=== PATIENT | male | born 1930 | race Caucasian/White ===

== ENCOUNTER 2017-02-19 15:05 | Inpatient (IN) | payer MEDICARE, OTHER ==
[2017-02-19 15:47] LABS: ADD MAN DIFF? NO
[2017-02-19 15:49] LABS: BASOPHILS % 0.3 % (0.0-2.0); EOSINOPHILS % 0.2 % (0.0-7.0); HEMATOCRIT 41.3 % (42.0-52.0); HEMOGLOBIN 14.2 g/dl (14.0-18.0); LYMPHOCYTES # 1.1 10^3/ul (0.8-2.9); LYMPHOCYTES % 11.2 % (15.0-51.0); MEAN CORPUSCULAR HEMOGLOBIN 27.5 pg (29.0-33.0); MEAN CORPUSCULAR HGB CONC 34.4 g/dl (32.0-37.0); MEAN PLATELET VOLUME 10.3 fl (7.4-10.4); MONOCYTE # 0.5 10^3/ul (0.3-0.9); MONOCYTES % 5.4 % (0.0-11.0); NEUTROPHIL # 8.2 10^3/ul (1.6-7.5); NEUTROPHILS % 82.6 % (39.0-77.0); PLATELET COUNT 247 10^3/UL (140-415); RED BLOOD COUNT 5.16 10^6/ul (4.70-6.10); RED CELL DISTRIBUTION WIDTH 14.2 % (11.5-14.5)
[2017-02-19 15:49] LABS: WHITE BLOOD COUNT 9.9 10^3/ul (4.8-10.8)
[2017-02-19 16:07] LABS: ALANINE AMINOTRANSFERASE 29 IU/L (13-69); ALBUMIN 4.5 g/dl (3.3-4.9); ALBUMIN/GLOBULIN RATIO 1.36; ALKALINE PHOSPHATASE 135 IU/L (42-121); ANION GAP 17 (8-16); ASPARTATE AMINO TRANSFERASE 23 IU/L (15-46); BILIRUBIN,INDIRECT 1.5 mg/dl (0-1.1); BILIRUBIN,TOTAL 1.5 mg/dl (0.2-1.3); BLOOD UREA NITROGEN 14 mg/dl (7-20); CARBON DIOXIDE 33 mmol/L (21-31); CHLORIDE 95 mmol/L (97-110); CREATININE 0.79 mg/dl (0.61-1.24); GLUCOSE 283 mg/dl (70-220); POTASSIUM 3.1 mmol/L (3.5-5.1); SODIUM 142 mmol/L (135-144); TOTAL PROTEIN 7.8 g/dl (6.1-8.1)
[2017-02-19 16:18] LABS: B-TYPE NATRIURETIC PEPTIDE 1280 PG/ML (0-450)
[2017-02-19 16:27] LABS: TROPONIN-I < 0.012 ng/ml (0.00-0.12)
[2017-02-19] MEDS: ONDANSETRON 4 MG INJ IV (16:53)
[2017-02-19] MEDS: hydrALAzine 20 MG INJ IV (16:56)
[2017-02-19] MEDS ORDERED: ONDANSETRON 4 MG INJ IV (19:00)
[2017-02-19] MEDS ORDERED: NACL 0.9% 3 ML SYG IV (19:00)
[2017-02-19] MEDS ORDERED: BISACODYL 10 MG SUPP PR (19:00)
[2017-02-19] MEDS ORDERED: ALBUTEROL/IPRATROPIUM (NEB) 3 ML AMP HHN (19:00)
[2017-02-19] MEDS ORDERED: morphine 2 MG INJ IV (19:00)
[2017-02-19] MEDS ORDERED: ACETAMINOPHEN 325 MG TAB PO ×3 (19:00)
[2017-02-19] MEDS ORDERED: NITROGLYCERIN (SL) 0.4 MG TAB SL (19:00)
[2017-02-19] MEDS ORDERED: NA PHOSPHATE/BIPHOS 133 ML ENEMA PR (19:00)
[2017-02-19] MEDS ORDERED: DOCUSATE SODIUM 100 MG CAP PO (19:00)
[2017-02-19] MEDS ORDERED: HYDROCODONE/APAP (5/325) TAB PO (19:00)
[2017-02-19] MEDS ORDERED: MAGNESIUM HYDROXIDE 30ML CUP PO (19:00)
[2017-02-19] MEDS: SOD CHLORIDE 0.9% 100 ML (19:25)
[2017-02-19] MEDS: IOHEXOL 300MG/ML 150 ML BTL (19:25)
[2017-02-19 19:41] LABS: FREE T4 (FREE THYROXINE) 1.21 ng/dl (0.85-1.93)
[2017-02-19] MEDS: POTASSIUM CHLORIDE 50 ML IVPB ×2 (20:00→21:00)
[2017-02-19] MEDS: LEVETIRACETAM 250 MG TAB PO (21:00)
[2017-02-19] MEDS: ATORVASTATIN 10 MG TAB PO (21:00)
[2017-02-19] MEDS: PHYTONADIONE 10 MG in DEXTROSE 5% 50 ML IVPB (21:00)
[2017-02-19] MEDS: TAMSULOSIN (SR) 0.4 MG CAP PO (21:00)
[2017-02-19] MEDS: FAMOTIDINE 20 MG INJ IV (21:00)
[2017-02-19 22:39] LABS: INR 1.63; PROTIME 19.7 Sec (11.9-14.9); PT RATIO 1.5
[2017-02-20] MEDS ORDERED: HALOPERIDOL 5 MG INJ (00:40)
[2017-02-20] MEDS: HALOPERIDOL 5 MG INJ IV (01:00)
[2017-02-20 07:18] LABS: ADD MAN DIFF? NO
[2017-02-20 07:23] LABS: BASOPHILS % 0.1 % (0.0-2.0); HEMATOCRIT 40.9 % (42.0-52.0); HEMOGLOBIN 13.9 g/dl (14.0-18.0); LYMPHOCYTES # 1.2 10^3/ul (0.8-2.9); LYMPHOCYTES % 9.9 % (15.0-51.0); MEAN CORPUSCULAR HEMOGLOBIN 27.5 pg (29.0-33.0); MEAN CORPUSCULAR VOLUME 80.8 fl (82.0-101.0); MEAN PLATELET VOLUME 10.2 fl (7.4-10.4); NEUTROPHIL # 9.8 10^3/ul (1.6-7.5); NEUTROPHILS % 81.5 % (39.0-77.0); PLATELET COUNT 244 10^3/UL (140-415); RED BLOOD COUNT 5.06 10^6/ul (4.70-6.10); RED CELL DISTRIBUTION WIDTH 14.2 % (11.5-14.5)
[2017-02-20 07:29] LABS: HEMOGLOBIN A1C 8.1 % (0-5.9)
[2017-02-20] MEDS: LORAZEPAM 2 MG INJ IV ×2 (07:36→12:14)
[2017-02-20 08:22] LABS: ANION GAP 18 (8-16); BLOOD UREA NITROGEN 19 mg/dl (7-20); CALCIUM 9.4 mg/dl (8.4-10.2); CARBON DIOXIDE 32 mmol/L (21-31); CHLORIDE 95 mmol/L (97-110); CREATININE 1.14 mg/dl (0.61-1.24); GLUCOSE 269 mg/dl (70-220); MAGNESIUM 1.6 mg/dl (1.7-2.5); PHOSPHORUS 4.4 mg/dl (2.5-4.9); SODIUM 142 mmol/L (135-144)
[2017-02-20 08:23] LABS: CHOL/HDL RATIO 2.2 RATIO; HDL CHOLESTEROL 61 mg/dl (31-75); LDL CHOLESTEROL,CALCULATED 67 mg/dl; TRIGLYCERIDES 56 mg/dl (0-149)
[2017-02-20 08:23] LABS: CHOLESTEROL 139 mg/dl (100-200)
[2017-02-20] MEDS: PANTOPRAZOLE (EC) 40 MG TAB PO (08:39)
[2017-02-20] MEDS: MAGNESIUM HYDROXIDE 30ML CUP PO (09:19)
[2017-02-20] MEDS: AMLODIPINE 5 MG TAB PO (09:19)
[2017-02-20] MEDS: LOSARTAN 50 MG TAB PO (09:19)
[2017-02-20] MEDS: FAMOTIDINE 20 MG INJ IV ×2 (09:19→21:14)
[2017-02-20] MEDS: LACTOBACILLUS RHAMNOSUS CAP PO (09:19)
[2017-02-20] MEDS: MULTIVITAMINS THERAPEUTIC TAB PO (09:19)
[2017-02-20] MEDS: ASCORBIC ACID 500 MG TAB PO (09:22)
[2017-02-20] MEDS ORDERED: GLUCAGON 1 MG INJ IM (09:30)
[2017-02-20] MEDS ORDERED: GLUCOSE GEL 15 GRAM TUBE PO ×2 (09:30)
[2017-02-20] MEDS ORDERED: POTASSIUM CHLORIDE 30 MEQ in DEXTROSE 5% 250 ML IVPB (09:30)
[2017-02-20] MEDS ORDERED: GLUCOSE GEL 15 GRAM TUBE BUCCAL (09:30)
[2017-02-20] MEDS ORDERED: DEXTROSE 50% 50 ML SYRINGE IV ×4 (09:30)
[2017-02-20] MEDS: ACCU-CHEK XX ×16 (09:36→23:38)
[2017-02-20] MEDS: MAGNESIUM SULFATE 2 GM/50 ML 50 ML IVPB (09:36)
[2017-02-20] MEDS: POTASSIUM CHLORIDE 50 ML IVPB ×3 (09:36→11:43)
[2017-02-20] MEDS: LEVETIRACETAM 250 MG TAB PO ×3 (10:32→21:14)
[2017-02-20] MEDS: INSULIN HUMAN REGULAR 100 UNIT in SOD CHLORIDE 0.9% 99 ML IV (10:59)
[2017-02-20 12:15] LABS: PT RATIO 1.4
[2017-02-20] MEDS: hydrALAzine 20 MG INJ IV (12:32)
[2017-02-20 13:50] LABS: INR 1.42; PROTIME 17.6 Sec (11.9-14.9)
[2017-02-20 20:29] LABS: PARTIAL THROMBOPLASTIN TIME 31.8 Sec (25.0-35.0)
[2017-02-20 21:00] LABS: CARCINOEMBRYONIC ANTIGEN 1.1 ng/ml (0.0-5.0)
[2017-02-20 21:01] LABS: LACTATE DEHYDROGENASE 565 IU/L (313-618)
[2017-02-20 21:04] LABS: ALPHA FETOPROTEIN 2.23 IU/L (0.00-7.21)
[2017-02-20] MEDS: TAMSULOSIN (SR) 0.4 MG CAP PO (21:14)
[2017-02-20] MEDS: ATORVASTATIN 10 MG TAB PO (21:14)
[2017-02-20 22:46] LABS: IMMUNOGLOBULIN A 345 mg/dl (70-400); IMMUNOGLOBULIN G 1180 mg/dl (700-1600); IMMUNOGLOBULIN M 170 mg/dl (40-230)
[2017-02-21] MEDS: ACCU-CHEK XX ×11 (00:30→11:12)
[2017-02-21 05:53] LABS: ADD MAN DIFF? NO
[2017-02-21 06:06] LABS: BASOPHILS % 0.3 % (0.0-2.0); EOSINOPHILS % 0.2 % (0.0-7.0); HEMATOCRIT 40.5 % (42.0-52.0); HEMOGLOBIN 13.8 g/dl (14.0-18.0); LYMPHOCYTES # 1.8 10^3/ul (0.8-2.9); LYMPHOCYTES % 11.4 % (15.0-51.0); MEAN CORPUSCULAR HEMOGLOBIN 27.8 pg (29.0-33.0); MEAN CORPUSCULAR HGB CONC 34.1 g/dl (32.0-37.0); MEAN CORPUSCULAR VOLUME 81.7 fl (82.0-101.0); MEAN PLATELET VOLUME 10.5 fl (7.4-10.4); MONOCYTE # 1.5 10^3/ul (0.3-0.9); MONOCYTES % 9.5 % (0.0-11.0); NEUTROPHIL # 12.2 10^3/ul (1.6-7.5); PLATELET COUNT 228 10^3/UL (140-415); RED BLOOD COUNT 4.96 10^6/ul (4.70-6.10); RED CELL DISTRIBUTION WIDTH 14.7 % (11.5-14.5)
[2017-02-21 06:06] LABS: WHITE BLOOD COUNT 15.6 10^3/ul (4.8-10.8)
[2017-02-21] MEDS: PANTOPRAZOLE (EC) 40 MG TAB PO (06:14)
[2017-02-21 06:52] LABS: ANION GAP 16 (8-16); BLOOD UREA NITROGEN 36 mg/dl (7-20); CALCIUM 9.1 mg/dl (8.4-10.2); CARBON DIOXIDE 31 mmol/L (21-31); CHLORIDE 97 mmol/L (97-110); CREATININE 1.46 mg/dl (0.61-1.24); GLUCOSE 121 mg/dl (70-220); SODIUM 141 mmol/L (135-144)
[2017-02-21] MEDS: LACTOBACILLUS RHAMNOSUS CAP PO (08:22)
[2017-02-21] MEDS: FAMOTIDINE 20 MG INJ IV (08:22)
[2017-02-21] MEDS: ASCORBIC ACID 500 MG TAB PO (08:22)
[2017-02-21] MEDS: MAGNESIUM HYDROXIDE 30ML CUP PO (08:22)
[2017-02-21] MEDS: LEVETIRACETAM 250 MG TAB PO ×2 (08:22→12:55)
[2017-02-21] MEDS: MULTIVITAMINS THERAPEUTIC TAB PO (08:22)
[2017-02-21] MEDS: AMLODIPINE 5 MG TAB PO (08:24)
[2017-02-21] MEDS: LOSARTAN 50 MG TAB PO (08:24)
[2017-02-21] MEDS: ONDANSETRON 4 MG INJ IV (11:08)
[2017-02-21] MEDS: MEGESTROL (40 MG/ML) 10ML CUP PO (12:55)
[2017-02-21] MEDS: POTASSIUM CHLORIDE (SR) 20 MEQ TAB PO (12:55)
[2017-02-21] MEDS ORDERED: INSULIN ASPART [NOVOLOG] 3 ML PEN SC (13:00)
[2017-02-21] MEDS: INSULIN GLARGINE [LANtus] 3 ML PEN SC (13:50)
[2017-02-21 15:19] LABS: INR 1.34; PROTIME 16.8 Sec (11.9-14.9); PT RATIO 1.3
[2017-02-21 15:50] LABS: ADD UMIC YES; UR AMORPHOUS CRYSTAL FEW /HPF (NONE SEEN); UR ASCORBIC ACID 40 mg/dL (NEGATIVE); UR BACTERIA FEW /HPF (NONE SEEN); UR BILIRUBIN (Dip) NEGATIVE (NEGATIVE); UR BLOOD (Dip) 1+ mg/dL (NEGATIVE); UR CLARITY CLOUDY (CLEAR); UR COLOR AMBER (YELLOW); UR GLUCOSE (Dip) NEGATIVE (NEGATIVE); UR KETONES (Dip) TRACE mg/dL (NEGATIVE); UR LEUKOCYTE ESTERASE (Dip) NEGATIVE Leu/ul (NEGATIVE); UR MUCUS FEW /HPF (NONE SEEN); UR NITRITE (Dip) NEGATIVE (NEGATIVE); UR RBC 67 /HPF (0-5); UR TOTAL PROTEIN (Dip) 1+ mg/dl (NEGATIVE); UR UROBILINOGEN (Dip) NEGATIVE (NEGATIVE); UR WBC 7 /HPF (0-5)
[2017-02-21] MEDS: INSULIN ASPART [NOVOLOG] 3 ML PEN SC (17:05)
[2017-02-21] MEDS ORDERED: INSULIN GLARGINE [LANtus] 3 ML PEN SC (20:00)
[2017-02-21] MEDS ORDERED: MEGESTROL (40 MG/ML) 10ML CUP PO (21:00)
[2017-02-22] MEDS ORDERED: ACCU-CHEK XX (02:00)
[2017-02-22] MEDS ORDERED: INSULIN GLARGINE [LANtus] 3 ML PEN SC (08:00)
[2017-02-22 11:11] LABS: PROTEIN, TOTAL 7.4 g/dL (6.1-8.1)
[2017-02-23 18:36] LABS: ALBUMIN 4.2 g/dL (3.8-4.8); ALPHA-1-GLOBULINS 0.4 g/dL (0.2-0.3); ALPHA-2-GLOBULINS 0.7 g/dL (0.5-0.9); BETA 2 GLOBULINS 0.4 g/dL (0.2-0.5); BETA GLOBULINS 0.5 g/dL (0.4-0.6); GAMMA GLOBULINS 1.2 g/dL (0.8-1.7)
== END 2017-02-21 19:20 | DRG 70 ==
LOC: ICU 18:39 → E/R 15:05 → ICU 18:39
DX: G93.9 Disorder of brain, unspecified (principal); I61.8 Other nontraumatic intracerebral hemorrhage; I48.2 Chronic atrial fibrillation; F03.90 Unspecified dementia, unspecified severity, without behavioral disturbance, psychotic disturbance, mood disturbance, and anxiety; I48.91 Unspecified atrial fibrillation; E11.9 Type 2 diabetes mellitus without complications; I10 Essential (primary) hypertension; I16.0 Hypertensive urgency; N40.0 Benign prostatic hyperplasia without lower urinary tract symptoms; E78.5 Hyperlipidemia, unspecified; E78.00 Pure hypercholesterolemia, unspecified; Z66 Do not resuscitate
CPT/HCPCS: 36415; 70450; 70552; 71045; 71260; 74177; 80048; 80053; 80061; 81001; 82105; 82378; 82784; 82962; 83036; 83615; 83735; 83880; 84100; 84155; 84165; 84439; 84443; 84484; 84702; 85025; 85384; 85610; 85730; 86320; 87081; 87086; 93005; 96374; 96375; 99291-25